=== PATIENT | female | born 1965 | race Two or more races ===

== ENCOUNTER 2019-06-18 12:52 | Emergency (ER) | payer OTHER ==
[~2019-06-18] VITALS: Ht 172.7 cm; Wt 81.6 kg
[2019-06-18] MEDS ORDERED: SYNTHROID75 MCG (13:28)
== END 2019-06-18 17:02 | disposition home or self-care (01) ==
LOC: ER 12:52
DX: J32.2 Chronic ethmoidal sinusitis (principal)

== ENCOUNTER 2022-04-05 23:28 | Emergency (ER) | payer OTHER ==
[~2022-04-05] VITALS: Ht 172.7 cm; Wt 78.9 kg
[~2022-04-05 23:28] MED LIST: SYNTHROID75 MCG
[2022-04-05] MEDS ORDERED: SYNTHROID88 MCG PO (23:42)
[2022-04-06] MEDS ORDERED: NORFLEX100MG PO (01:21)
[2022-04-06] MEDS ORDERED: KETO10TA2 PO (01:21)
== END 2022-04-06 | disposition home or self-care (01) ==
LOC: ER 23:28
DX: S13.4XXA Sprain of ligaments of cervical spine, initial encounter (principal); V43.52XA Car driver injured in collision with other type car in traffic accident, initial encounter; Y93.89 Activity, other specified; Y92.413 State road as the place of occurrence of the external cause

== ENCOUNTER 2022-06-08 13:20 | Emergency (ER) | payer OTHER ==
[~2022-06-08] VITALS: Ht 172.7 cm; Wt 81.6 kg
[~2022-06-08 13:20] MED LIST changes: +KETO10TA2 PO; +NORFLEX100MG PO; +SYNTHROID88 MCG PO
== END 2022-06-08 19:20 | disposition home or self-care (01) ==
LOC: ER 13:20
DX: B34.8 Other viral infections of unspecified site (principal); Z20.822 Contact with and (suspected) exposure to COVID-19

== ENCOUNTER 2022-07-23 05:40 | Day surgery (SDC) | payer OTHER ==
[~2022-07-23] VITALS: Ht 170.2 cm; Wt 80.7 kg
== END 2022-07-23 12:15 | disposition home or self-care (01) ==
LOC: CIR.AMB 05:40
PROVIDERS: ATTEND Obstetrics & Gynecology
DX: N84.1 Polyp of cervix uteri (principal); N84.0 Polyp of corpus uteri; Z86.16 Personal history of COVID-19; E03.9 Hypothyroidism, unspecified; E16.2 Hypoglycemia, unspecified; Z20.822 Contact with and (suspected) exposure to COVID-19

== ENCOUNTER 2025-06-10 10:37 | Emergency (ER) | payer OTHER ==
[~2025-06-10] VITALS: Ht 172.7 cm; Wt 73.5 kg
[2025-06-10] MEDS ORDERED: KETO10TA2 PO (15:00)
[2025-06-10] MEDS ORDERED: NORFLEX100MG PO (15:00)
== END 2025-06-10 15:09 | disposition home or self-care (01) ==
LOC: ER 10:37
DX: S29.8XXA Other specified injuries of thorax, initial encounter (principal); W01.0XXA Fall on same level from slipping, tripping and stumbling without subsequent striking against object, initial encounter; Y93.89 Activity, other specified; Y92.018 Other place in single-family (private) house as the place of occurrence of the external cause; R07.81 Pleurodynia; S09.8XXA Other specified injuries of head, initial encounter